=== PATIENT | male | born 1995 | race Hispanic/Latino ===

== ENCOUNTER 2019-05-08 07:43 | Inpatient (IN) | payer OTHER, SELFPAY ==
[2019-05-08 08:36] LABS: Absolute Lymphocytes (CBC) 1.3 K/uL (0.7-4.9); Basophils % 0.1 % (0-1.3); Hematocrit 43.4 % (39.6-49.0); Lymphocytes % 5.9 % (15.3-44.8); RBC Red Blood Cell Count 4.94 M/uL (4.33-5.43)
[2019-05-08] MEDS ORDERED: LEVALBUTEROL 1.25 MG/3 ML NEB ONE (08:42)
[2019-05-08] MEDS ORDERED: CEFTRIAXONE/SWI 1gm 2 GM/20 ML SYR ONE (08:42)
[2019-05-08] MEDS ORDERED: IPRATROPIUM BROM 0.5MG/2.5ML ONE (08:42)
[2019-05-08] MEDS ORDERED: ACETAMINOPHEN 325 MG TABLET ONE (08:42)
[2019-05-08] MEDS ORDERED: NA CHLORIDE 0.9% 1,000 ML ONE (08:43)
[2019-05-08] MEDS ORDERED: AZITHROMYCIN IV 500 MG in NA CHLORIDE 0.9% 250 ML IVPB ONE (09:00)
[2019-05-08] MEDS ORDERED: METHYLPREDNISOLONE 125 MG INJ ONE (09:03)
[2019-05-08 09:05] LABS: Blood Morphology Comment NOT SEEN (NOT SEEN); Platelet Estimate INCR
--- NOTE | 2019-05-08 09:34 | RAD REPORT ---
EXAM DESCRIPTION: Pedro Hayden And Osito (2 Views)05/08/2019 8:38 am CLINICAL HISTORY: Cough COMPARISON: Moderate diffuse bilateral interstitial lung opacities. FINDINGS: The lungs appear clear of acute infiltrate. The heart is normal size IMPRESSION: Moderate diffuse bilateral social lung opacities may represent interstitial pneumonia or miliary interstitial lung opacities associated with TB, fungal infection, metastatic disease or infl ammation
--- NOTE | 2019-05-08 09:39 | EDPHYS ---
Physician Documentation [facility] Name: Romelia Chang Age: 23 yrs Sex: Male : 1995 Arrival Date: 05/08/2019 Time: 07:46 Bed 13 Private MD: Unknown, Unknown ED Physician Efrain Lynn HPI: 05/08 08:13 This 23 yrs old Male presents to ER via Ambulatory with complaints of Fever, danielle Breathing Difficulty. 08:13 The patient reports fever, that was measured at 100 degrees Fahrenheit. Onset: The danielle symptoms/episode began/occurred 5 day(s) ago. Modifying factors: there are no obvious modifying factors. Associated signs and symptoms: Pertinent positives: chills, cough, runny nose, sinus congestion. Severity of symptoms: At their worst the symptoms were mild moderate in the emergency department the symptoms are unchanged. The patient has not experienced similar symptoms in the past. Historical: - Allergies: 07:59 No Known Allergies; iw - Home Meds: 07:59 None [Active]; iw - PMHx: 07:59 None; iw - PSHx: 07:59 None; iw - Immunization history:: Adult Immunizations not up to date. - Social history:: Smoking status: Patient uses vape pen. - Ebola Screening: : Patient negative for fever greater than or equal to 101.5 degrees Fahrenheit, and additional compatible Ebola Virus Disease symptoms Patient denies exposure to infectious person Patient denies travel to an Ebola-affected area in the 21 days before illness onset No symptoms or risks identified at this time. ROS: 08:14 Constitutional: Negative for fever, chills, and weight loss, Eyes: Negative for injury, danielle pain, redness, and discharge, ENT: Negative for injury, pain, and discharge, Neck: Negative for injury, pain, and swelling, Cardiovascular: Negative for chest pain, palpitations, and edema, Abdomen/GI: Negative for abdominal pain, nausea, vomiting, diarrhea, and constipation, Back: Negative for injury and pain, : Negative for injury, bleeding, discharge, and swelling, MS/Extremity: Negative for injury and deformity, Skin: Negative for injury, rash, and discoloration, Neuro: Negative for headache, weakness, numbness, tingling, and seizure, Psych: Negative for depression, anxiety, suicide ideation, homicidal ideation, and hallucinations, Allergy/Immunology: Negative for hives, rash, and allergies, Endocrine: Negative for neck swelling, polydipsia, polyuria, polyphagia, and marked weight changes, Hematologic/Lymphatic: Negative for swollen nodes, abnormal bleeding, and unusual bruising. 08:14 Respiratory: Positive for cough, shortness of breath, on exertion. Exam: 08:14 Constitutional: This is a well developed, well nourished patient who is awake, alert, danielle and in no acute distress. Head/Face: Normocephalic, atraumatic. Eyes: Pupils equal round and reactive to light, extra-ocular motions intact. Lids and lashes normal. Conjunctiva and sclera are non-icteric and not injected. Cornea within normal limits. Periorbital areas with no swelling, redness, or edema. ENT: Nares patent. No nasal discharge, no septal abnormalities noted. Tympanic membranes are normal and external auditory canals are clear. Oropharynx with no redness, swelling, or masses, exudates, or evidence of obstruction, uvula midline. Mucous membranes moist. Neck: Trachea midline, no thyromegaly or masses palpated, and no cervical lymphadenopathy. Supple, full range of motion without nuchal rigidity, or vertebral point tenderness. No Meningismus. Chest/axilla: Normal chest wall appearance and motion. Nontender with no deformity. No lesions are appreciated. Abdomen/GI: Soft, non-tender, with normal bowel sounds. No distension or tympany. No guarding or rebound. No evidence of tenderness throughout. Back: No spinal tenderness. No costovertebral tenderness. Full range of motion. Male : Normal genitalia with no discharge or lesions. Skin: Warm, dry with normal turgor. Normal color with no rashes, no lesions, and no evidence of cellulitis. MS/ Extremity: Pulses equal, no cyanosis. Neurovascular intact. Full, normal range of motion. Neuro: Awake and alert, GCS 15, oriented to person, place, time, and situation. Cranial nerves II-XII grossly intact. Motor strength 5/5 in all extremities. Sensory grossly intact. Cerebellar exam normal. Normal gait. Psych: Awake, alert, with orientation to person, place and time. Behavior, mood, and affect are within normal limits. 08:14 Cardiovascular: Rate: tachycardic, Rhythm: regular, Pulses: Pulses are 4+ in bilateral radial, brachial, femoral, popliteal, posterior tibial and and dorsalis pedis arteries.. Heart sounds: normal, Edema: is not appreciated, JVD: is noted bilaterally. 08:28 Musculoskeletal/extremity: DVT Exam: No signs of deep vein thrombosis. no pain, no danielle swelling, no tenderness, negative Homans' sign noted on exam, no appreciated bluish discoloration, no erythema, no increased warmth. Vital Signs: 07:59 BP 118 / 61; Pulse 105; Resp 18 S; Temp 99.2(O); Pulse Ox 91% on R/A; Weight 102.06 kg; iw Height 5 ft. 11 in. (180.34 cm); Pain 7/10; 08:20 Pulse 112; Resp 22; Pulse Ox 89% on R/A; iw 08:30 Pulse 113; Resp 20 S; Pulse Ox 78% on R/A; iw 08:38 BP 109 / 74; Pulse 110; Resp 20 S; Pulse Ox 90% on 5 lpm NC; iw 08:58 BP 113 / 78; Pulse 116; Resp 21 S; Pulse Ox 96% on Nebulizer Mask; iw 09:50 BP 116 / 58; Pulse 116; Resp 19 S; Pulse Ox 97% on R/A; iw 10:17 BP 120 / 69; Pulse 115; Resp 18 S; Pulse Ox 96% on R/A; iw 10:41 Pulse 110; Resp 20; Temp 98.8(O); Pulse Ox 91% on R/A; iw 11:35 Pulse 101; Resp 20 S; Pulse Ox 94% on R/A; iw 12:49 BP 120 / 75; Pulse 106; Resp 18; Pulse Ox 93% ; mh5 14:22 BP 123 / 71; Pulse 92; Resp 20; Temp 98.7; Pulse Ox 96% on R/A; ph 07:59 Body Mass Index 31.38 (102.06 kg, 180.34 cm) iw MDM: 08:00 Patient medically screened. [facility] 08:14 Data reviewed: vital signs, nurses notes, lab test result(s), radiologic studies. [facility] 05/08 08:13 Order name: CBC with Diff [facility] 05/08 08:13 Order name: Comprehensive Metabolic Panel; Complete Time: 10:37 [facility] 05/08 08:13 Order name: Blood Culture Adult (2) [facility] 05/08 08:17 Order name: D-Dimer [facility] 05/08 08:48 Order name: CBC with Automated Diff; Complete Time: 09:34 [facility] 05/08 09:09 Order name: Manual Differential; Complete Time: 09:34 [facility] 05/08 08:13 Order name: Chest Pa And Lat (2 Views) XRAY [facility] 05/08 09:34 Order name: D-Dimer [facility] 05/08 09:35 Order name: CT Chest For PE Angio [facility] 05/08 10:43 Order name: US Abdomen Limited [facility] 05/08 10:43 Order name: PO challenge: juice; Complete Time: 11:33 [facility] Administered Medications: 08:45 Drug: NS 0.9% 1000 ml Route: IV; Rate: 1 bolus; Site: right antecubital; iw 08:45 Drug: Albuterol - atroVENT (3:1) (2.5 mg - 0.5 mg) 3 ml Route: Nebulizer; iw 10:30 Follow up: Response: No adverse reaction; Wheezing diminished iw 08:56 Drug: Tylenol 650 mg Route: PO; iw 10:00 Follow up: Response: Temperature is decreased iw 08:57 Drug: Rocephin 2 grams Route: IV; Rate: per protocol; Site: right antecubital; iw 09:00 Follow up: IV Status: Completed infusion iw 09:04 Drug: SOLU-Medrol 125 mg Route: IVP; Site: right antecubital; iw 10:00 Follow up: Response: No adverse reaction iw 09:58 Drug: Zithromax 500 mg Route: IVPB; Infused Over: 1 hrs; Site: right antecubital; iw 11:34 Follow up: IV Status: Completed infusion iw 11:33 Drug: Potassium Effervescent Tablet 25 mEq Route: PO; iw 12:00 Follow up: Response: No adverse reaction iw Disposition: 05/08/19 08:52 Hospitalization ordered by Jace Mitchell for Inpatient Admission. Preliminary diagnosis are Hypoxemia, Pneumonia due to other specified bacteria - failed outpt treatment, Fever, unspecified, Dyspnea, Bandemia, Elevated white blood cell count. - Bed requested for Telemetry/MedSurg (Inpatient). - Status is Inpatient Admission. iw - Condition is Fair. - Problem is new. - Symptoms have improved. UTI on Admission? No Signatures: Dispatcher [employer] EDMS Efrain Lynn MD MD cha Williams, Irene, KASEY RN Nina Garcia ms Corrections: (The following items were deleted from the chart) 09: 08:52 Hospitalization Ordered by Jace Mitchell MD for Inpatient Admission. Preliminary [facility] diagnosis is Hypoxemia; Pneumonia due to other specified bacteria - failed outpt treatment; Fever, unspecified; Dyspnea. Bed requested for Telemetry/MedSurg (Inpatient). Status is Inpatient Admission. Condition is Fair. Problem is new. Symptoms have improved. UTI on Admission? No. danielle 12:17 09:09 05/08/2019 08:52 Hospitalization Ordered by Jace Mitchell MD for Inpatient iw Admission. Preliminary diagnosis is Hypoxemia; Pneumonia due to other specified bacteria - failed outpt treatment; Fever, unspecified; Dyspnea; Bandemia; Elevated white blood cell count. Bed requested for Telemetry/MedSurg (Inpatient). Status is Inpatient Admission. Condition is Fair. Problem is new. Symptoms have improved. UTI on Admission? No. [facility] 13:46 12:17 05/08/2019 08:52 Hospitalization Ordered by Jace Mitchell MD for Inpatient ms Admission. Preliminary diagnosis is Hypoxemia; Pneumonia due to other specified bacteria - failed outpt treatment; Fever, unspecified; Dyspnea; Bandemia; Elevated white blood cell count. Bed requested for [facility] ER HOLD. Status is Inpatient Admission. Condition is Fair. Problem is new. Symptoms have improved. UTI on Admission? No. iw 14:53 13:46 05/08/2019 08:52 Hospitalization Ordered by Jace Mitchell MD for Inpatient iw Admission. Preliminary diagnosis is Hypoxemia; Pneumonia due to other specified bacteria - failed outpt treatment; Fever, unspecified; Dyspnea; Bandemia; Elevated white blood cell count. Bed requested for Telemetry/MedSurg (Inpatient). Status is Inpatient Admission. Condition is Fair. Problem is new. Symptoms have improved. UTI on Admission? No. ms
--- NOTE | 2019-05-08 09:39 | ER ---
Nurse's Notes [facility] Prash[facility] Name: Romelia Chang Age: 23 yrs Sex: Male : 1995 Arrival Date: 05/08/2019 Time: 07:46 Bed 13 Private MD: Unknown, Unknown Diagnosis: Hypoxemia;Pneumonia due to other specified bacteria-failed outpt treatment;Fever, unspecified;Dyspnea;Bandemia;Elevated white blood cell count Presentation: 05/08 07:56 Presenting complaint: Patient states: dry cough, fever, difficulty breathing since Apr iw , was prescribed amoxicillin, prednisone, Cipro, Symbicort at clinic on 05-03-19, not getting better. Transition of care: patient was not received from another setting of care. Onset of symptoms was May 01, 2019. Risk Assessment: Do you want to hurt yourself or someone else? Patient reports no desire to harm self or others. Initial Sepsis Screen: Does the patient meet any 2 criteria? No. Patient's initial sepsis screen is negative. Does the patient have a suspected source of infection? No. Patient's initial sepsis screen is negative. Care prior to arrival: None. 07:56 Method Of Arrival: Ambulatory iw 07:56 Acuity: MARY 3 iw Triage Assessment: 08:00 Respiratory: Onset: The symptoms/episode began/occurred may 01, the patient has iw moderate shortness of breath. Historical: - Allergies: 07:59 No Known Allergies; iw - Home Meds: 07:59 None [Active]; iw - PMHx: 07:59 None; iw - PSHx: 07:59 None; iw - Immunization history:: Adult Immunizations not up to date. - Social history:: Smoking status: Patient uses vape pen. - Ebola Screening: : Patient negative for fever greater than or equal to 101.5 degrees Fahrenheit, and additional compatible Ebola Virus Disease symptoms Patient denies exposure to infectious person Patient denies travel to an Ebola-affected area in the 21 days before illness onset No symptoms or risks identified at this time. Screenin:00 Fall Risk IV access (20 points). iw 08:31 Abuse screen: Denies threats or abuse. Denies injuries from another. Nutritional iw screening: No deficits noted. Tuberculosis screening: No symptoms or risk factors identified. Assessment: 08:00 General: Appears in no apparent distress. Behavior is calm, cooperative. General: iw Reports fever for > 3 days, feeling ill for > 3 days. Pain: Complains of pain in chest Pain currently is 7 out of 10 on a pain scale. Aggravated by deep breath. Neuro: Level of Consciousness is awake, alert, obeys commands, Oriented to person, place, time, situation, Moves all extremities. Full function. Cardiovascular: Rhythm is sinus tachycardia. Respiratory: Reports shortness of breath at rest on exertion cough that is non-productive, pain with respiration Airway is patent Respiratory effort is even, labored, Respiratory pattern is regular, symmetrical, Breath sounds are coarse in left posterior upper lobe and left posterior lower lobe Breath sounds are diminished in right upper lobe and left upper lobe. GI: Abdomen is flat, non-distended. Derm: Skin is intact, is healthy with good turgor. Musculoskeletal: Range of motion: intact in all extremities. 08:30 Reassessment: pt dropped down to 78%, placed on 5L NC, up to 90%, pt to radiology for iw xray, remains on O2, transported via wheelchair. 08:38 Reassessment: Dr. Lynn notified that pt remains at 90% on 5 L NC, orders placed for iw breathing treatment. 09:05 Reassessment: pt states breathing has improved while on neb treatment, SpO2=98%, iw respirations even, unlabored, pt updated on POC, family at bedside. 09:51 Reassessment: Patient appears in no apparent distress at this time. Patient and/or iw family updated on plan of care and expected duration. Pain level reassessed. Patient is alert, oriented x 3, equal unlabored respirations, skin warm/dry/pink. Patient states feeling better. Patient states symptoms have improved. 11:35 Reassessment: Patient appears in no apparent distress at this time. Patient and/or iw family updated on plan of care and expected duration. Pain level reassessed. Patient is alert, oriented x 3, equal unlabored respirations, skin warm/dry/pink. 14:33 Reassessment: Patient appears in no apparent distress at this time. Patient and/or ph family updated on plan of care and expected duration. Pain level reassessed. Patient is alert, oriented x 3, equal unlabored respirations, skin warm/dry/pink. Report called to Live Linder RN. Vital Signs: 07:59 BP 118 / 61; Pulse 105; Resp 18 S; Temp 99.2(O); Pulse Ox 91% on R/A; Weight 102.06 kg; iw Height 5 ft. 11 in. (180.34 cm); Pain 7/10; 08:20 Pulse 112; Resp 22; Pulse Ox 89% on R/A; iw 08:30 Pulse 113; Resp 20 S; Pulse Ox 78% on R/A; iw 08:38 BP 109 / 74; Pulse 110; Resp 20 S; Pulse Ox 90% on 5 lpm NC; iw 08:58 BP 113 / 78; Pulse 116; Resp 21 S; Pulse Ox 96% on Nebulizer Mask; iw 09:50 BP 116 / 58; Pulse 116; Resp 19 S; Pulse Ox 97% on R/A; iw 10:17 BP 120 / 69; Pulse 115; Resp 18 S; Pulse Ox 96% on R/A; iw 10:41 Pulse 110; Resp 20; Temp 98.8(O); Pulse Ox 91% on R/A; iw 11:35 Pulse 101; Resp 20 S; Pulse Ox 94% on R/A; iw 12:49 BP 120 / 75; Pulse 106; Resp 18; Pulse Ox 93% ; mh5 14:22 BP 123 / 71; Pulse 92; Resp 20; Temp 98.7; Pulse Ox 96% on R/A; ph 07:59 Body Mass Index 31.38 (102.06 kg, 180.34 cm) iw ED Course: 07:46 Patient arrived in ED. ag5 07:47 Unknown, Unknown is Private Physician. ag5 07:49 Marylou Gonzalez, RN is Primary Nurse. iw 07:58 Triage completed. iw 07:59 Arm band placed on. iw 08:00 Efrain Lynn MD is Attending Physician. danielle 08:25 Inserted saline lock: 20 gauge in right antecubital area, using aseptic technique. iw Blood collected. 08:50 Jace Mitchell MD is Hospitalizing Provider. danielle 09:00 D-Dimer Sent. iw 09:23 Chest Pa And Lat (2 Views) XRAY In Process Unspecified. EDMS 09:44 Radiology exam delayed due to lab results not completed at this time. (BUN/Creatinine). bq 11:05 CT Chest For PE Angio In Process Unspecified. EDMS 12:48 Diet: Patient given a regular meal tray. mh5 12:48 Patient has correct armband on for positive identification. Bed in low position. Call mh5 light in reach. Side rails up X 1. Adult w/ patient. Pillow given. Pulse ox on. NIBP on. 14:33 No provider procedures requiring assistance completed. Patient admitted, IV remains in ph place. Administered Medications: 08:45 Drug: NS 0.9% 1000 ml Route: IV; Rate: 1 bolus; Site: right antecubital; iw 08:45 Drug: Albuterol - atroVENT (3:1) (2.5 mg - 0.5 mg) 3 ml Route: Nebulizer; iw 10:30 Follow up: Response: No adverse reaction; Wheezing diminished iw 08:56 Drug: Tylenol 650 mg Route: PO; iw 10:00 Follow up: Response: Temperature is decreased iw 08:57 Drug: Rocephin 2 grams Route: IV; Rate: per protocol; Site: right antecubital; iw 09:00 Follow up: IV Status: Completed infusion iw 09:04 Drug: SOLU-Medrol 125 mg Route: IVP; Site: right antecubital; iw 10:00 Follow up: Response: No adverse reaction iw 09:58 Drug: Zithromax 500 mg Route: IVPB; Infused Over: 1 hrs; Site: right antecubital; iw 11:34 Follow up: IV Status: Completed infusion iw 11:33 Drug: Potassium Effervescent Tablet 25 mEq Route: PO; iw 12:00 Follow up: Response: No adverse reaction iw Outcome: 08:52 Decision to Hospitalize by Provider. danielle 14:33 Admitted to Med/surg accompanied by tech, via wheelchair, room 408, with chart, Report ph called to Live Linder RN 14:33 Condition: stable 14:33 Instructed on the need for admit. 14:53 Patient left the ED. iw Signatures: Dispatcher [employer] Efrain eCron MD MD cha Quilty, Betty bq Williams, Irene, RN RN iw Hall, Patricia, RN RN ph Martinez, Maria 5 Shey Pisano5 Corrections: (The following items were deleted from the chart) 08:01 07:59 BP 118 / 61; Pulse 105bpm; Resp 18bpm; Spontaneous; Pulse Ox 93% RA; Temp 99.2F iw Oral; 102.06 kg; Height 5 ft. 11 in.; BMI: 31.3; Pain 7/10; iw 10:51 10:41 Pulse 110bpm; Resp 20bpm; Pulse Ox 91% RA; iw iw
[2019-05-08 10:17] LABS: ALT/SGPT 241 U/L (12-78); AST/SGOT 138 U/L (15-37); Albumin 2.5 g/dL (3.4-5.0); Alkaline Phosphatase 282 U/L (45-117); BUN Blood Urea Nitrogen 8 mg/dL (7-18); Bicarbonate 24 mmol/L (21-32); Bilirubin Total 2.5 mg/dL (0.2-1.0); Glucose Level 113 mg/dL (74-106); Potassium 3.3 mmol/L (3.5-5.1); Protein, Total 7.8 g/dL (6.4-8.2); Sodium Level 139 mmol/L (136-145)
--- NOTE | 2019-05-08 10:39 | RAD REPORT ---
EXAM DESCRIPTION: CT - Chest For Pe Angio - 05/08/2019 10:28 am CLINICAL HISTORY: Chest pain. CHEST PAIN COMPARISON: Chest Pa And Lat (2 Views) dated 05/08/2019 TECHNIQUE: CT angiogram of the pulmonary arteries was performed with MIP. All CT scans are performed using dose optimization technique as appropriate and may include automated exposure control or mA/KV adjustment according to patient size. FINDINGS: No evidence of pulmonary thromboembolism. No acute aortic finding demonstrated. Extensive bilateral interstitial lung opacities seen with subpleural sparing. No significant pericardial or pleural fluid. No concerning bony finding. IMPRESSION: No evidence of pulmonary thromboembolism. Extensive interstitial lung opacity present bilaterally with evidence of subpleural sparing. This pat tern can indicate nonspecific interstitial pneumonia (NSIP).
--- NOTE | 2019-05-08 11:23 | RAD REPORT ---
EXAM DESCRIPTION: US - Abdomen Exam Limited - 05/08/2019 11:13 am CLINICAL HISTORY: ABD PAIN COMPARISON: No comparisons FINDINGS: The gallbladder demonstrates no gallstones. No pericholecystic fluid or gallbladder wall t hickening. The common bile duct is normal measuring 4 mm. The liver demonstrates no findings of intrahepatic biliary dilatation. IMPRESSION: Unremarkable examination.
[2019-05-08] MEDS ORDERED: POTASSIUM 25 MEQ EFFERV TAB ONE (11:28)
[2019-05-08] MEDS ORDERED: ONDANSETRON 4 MG/2 ML VIAL IV PRN (12:01)
[2019-05-08 15:23] VITALS: BMI 30.7
--- NOTE | 2019-05-08 18:28 | P.HP ---
Certification for Inpatient Patient admitted to: Inpatient With expected LOS: >2 Midnights Practitioner: I am a practitioner with admitting privileges, knowledge of patient current condition, hospital course, and medical plan of care. Services: Services provided to patient in accordance with Admission requirements found in Title 42 Section 412.3 of the Code of Federal Regulations Patient History Date of Service: 05/08/19 Reason for admission: Shortness of breath History of Present Illness: This is a 23-year-old male with no oral past medical history admitted for shortness of breath and fever. Per patient, for the past 8-9 days, he has been having fevers, dry cough and shortness of breath. He reports a maximum temperature of 104 at home. He also reports using Vape cartridges with THC. He states that he went to a clinic and needle few days ago, picked up ciprofloxacin and amoxicillin. She took it as he was prescribed for 5 days without any improvement. He therefore came to the emergency room today. In the ER, he was hemodynamically stable, had a fever. His chest x-ray was with bilateral lung opacities, his CT of the chest is negative for PE but also showed bilateral interstitial pneumonia. His labs were remarkable for WBC count elevated at 22.3, platelets 589, LFTs were also elevated. An abdominal ultrasound was done, which was normal. At the time of my exam, patient is alert oriented x3, in no acute distress and hemodynamically stable. He reported that his symptoms had improved drastically. Allergies No Known Allergies Allergy (Unverified 05/08/19 08:52) Home medications list reviewed: Yes Home Medications: Amoxicillin 500 mg PO TID 05/08/19 Budesonide/Formoterol Fumarate [Symbicort 160-4.5 Mcg Inhaler] 1 puff IH DAILY 05/08/19 Ciprofloxacin HCl [Cipro 500 MG Tablet] 500 mg PO BID 05/08/19 predniSONE [Deltasone] 20 mg PO DAILY 05/08/19 - Past Medical/Surgical History Diabetic: No - Social History Smoking Status: Current every day smoker Alcohol use: Yes CD- Drugs: No Caffeine use: Yes Place of Residence: Home Review of Systems 10-point ROS is otherwise unremarkable Physical Examination - Vital Signs Temperature: 97 F Blood Pressure: 145/79 Pulse: 92 Respirations: 16 Pulse Ox (%): 94 - Physical Exam General: Alert, In no apparent distress, Oriented x3 HEENT: Atraumatic, PERRLA, Mucous membr. moist/pink, EOMI, Sclerae nonicteric Neck: Supple, 2+ carotid pulse no bruit, No LAD, Without JVD or thyroid abnormality Respiratory: Normal air movement, Crackles/rales Cardiovascular: Regular rate/rhythm, Normal S1 S2 Gastrointestinal: Normal bowel sounds, No tenderness Musculoskeletal: No tenderness Integumentary: No rashes Neurological: Normal gait, Normal speech, Normal strength at 5/5 x4 extr, Normal tone, Normal affect Lymphatics: No axilla or inguinal lymphadenopathy - Studies Laboratory Data (last 24 hrs) 05/08/19 09:40: Sodium 139, Potassium 3.3 L, BUN 8, Creatinine 0.61, Glucose 113 H, Total Bilirubin 2.5 H, AST 138 H, ALT 241 H, Alkaline Phosphatase 282 H 05/08/19 08:20: WBC 22.3 H*, Hgb 15.4, Hct 43.4, Plt Count 589 H Assessment and Plan - Problems (Diagnosis) (1) Bilateral pneumonia Current Visit: Yes Status: Acute Qualifiers: Pneumonia type: due to unspecified organism Lung location: unspecified part of lung Qualified Code(s): J18.9 - Pneumonia, unspecified organism (2) Acute lung injury Current Visit: Yes Status: Acute Qualifiers: Encounter type: initial encounter Qualified Code(s): S27.309A - Unspecified injury of lung, unspecified, initial encounter (3) Leukocytosis Current Visit: Yes Status: Acute (4) Elevated LFTs Current Visit: Yes Status: Acute (5) Obesity (BMI 30.0-34.9) Current Visit: No Status: Chronic (6) Tetrahydrocannabinol (THC) use disorder, mild, abuse Current Visit: Yes Status: Acute - Plan -Admit to floor with tele -chest x-ray consistent with bilateral pneumonia -chest CT negative for pulmonary embolism, consistent with bilateral interstitial pneumonia -abdominal ultrasound negative -trend LFTs -symptoms likely secondary to Vape/THC usage. -continue IV antibiotics -IV steroids -oxygen support as needed. May use BiPAP if needed. DVT prophylaxis: Lovenox GI prophylaxis: None Diet: regular Disposition: pending symptomatic improvement Discharge Plan: Home Plan to discharge in: Greater than 2 days - Advance Directives Does patient have a Living Will: No Does patient have a Durable POA for Healthcare: No Time Spent Managing Pts Care (In Minutes): 55
[2019-05-08] MEDS: ALBUTEROL 2.5 MG/3 ML NEB SOL NEB SCH (20:55)
[2019-05-08] MEDS: IPRATROPIUM BROM 0.5MG/2.5ML NEB SCH (20:55)
[2019-05-08] MEDS: CEFTRIAXONE/SWI 1gm 1 GM/10 ML SYR IV SCH (21:07)
[2019-05-08] MEDS: METHYLPREDNISOLONE 40 MG INJ IV SCH (23:54)
[2019-05-09] MEDS: IPRATROPIUM BROM 0.5MG/2.5ML NEB SCH ×4 (01:30→20:40)
[2019-05-09] MEDS: ALBUTEROL 2.5 MG/3 ML NEB SOL NEB SCH ×4 (01:30→20:40)
[2019-05-09] MEDS: METHYLPREDNISOLONE 40 MG INJ IV SCH ×4 (06:09→23:29)
[2019-05-09 06:33] LABS: Absolute Lymphocytes (CBC) 0.7 K/uL (0.7-4.9); Hematocrit 39.3 % (39.6-49.0); Lymphocytes % 3.8 % (15.3-44.8); MPV 7.2 fL (7.6-11.3); RBC Red Blood Cell Count 4.38 M/uL (4.33-5.43)
[2019-05-09 07:09] LABS: ALT/SGPT 196 U/L (12-78); AST/SGOT 62 U/L (15-37); Albumin 2.6 g/dL (3.4-5.0); Alkaline Phosphatase 283 U/L (45-117); BUN Blood Urea Nitrogen 12 mg/dL (7-18); Bicarbonate 28 mmol/L (21-32); Bilirubin Total 0.7 mg/dL (0.2-1.0); Glucose Level 139 mg/dL (74-106); Potassium 4.2 mmol/L (3.5-5.1); Protein, Total 7.9 g/dL (6.4-8.2); Sodium Level 140 mmol/L (136-145)
[2019-05-09] MEDS: ENOXAPARIN 40 MG/0.4 ML SQ SCH (08:17)
[2019-05-09] MEDS: CEFTRIAXONE/SWI 1gm 1 GM/10 ML SYR IV SCH ×2 (08:17→20:27)
[2019-05-09] MEDS: AZITHROMYCIN IV 500 MG in NA CHLORIDE 0.9% 250 ML IVPB SCH (09:15)
--- NOTE | 2019-05-09 12:14 | RAD REPORT ---
EXAM DESCRIPTION: Pedro Single View05/09/2019 12:03 pm CLINICAL HISTORY: Shortness of breath COMPARISON: May 08, 2019 FINDINGS: No significant change in the diffuse bilateral pulmonary opacities . The heart is normal size IMPRESSION: No change in the diffuse bilateral pulmonary opacities which may represent pneumonia or pneumonitis
--- NOTE | 2019-05-09 20:11 | PN ---
Date of Progress Note: 05/09/2019 Subjective: Patient is seen and examined. Chart reviewed and case discussed with RN and Dr. Shandra pruitt. The patient is improving. No significant shortness of breath. Still having some cough. Remains afebrile. Medications list reviewed. Physical Examination: Vital Signs: Temperature 97.6, heart rate 73, blood pressure 124/65, respirations 17, O2 90% on room air. General: Awake, alert, oriented x3, in some minimal respiratory distress. CV: S1, S2. No murmurs. Regular rate and rhythm. Peripheral pulses present. Respiratory: Diminished breath sounds. No wheezes or stridor. No use of accessory muscles. Gastrointestinal: Abdomen is soft, nontender, nondistended. Positive bowel sounds. No guarding or rigidity. Extremities: No clubbing, cyanosis, or edema. No calf tenderness. Neuro: Cranial nerves 2 through 12 intact grossly. No focal neurological deficit. Speech is normal . Laboratory Data: WBC 18, H and H 13.9 and 39.3, platelets 549, neutrophils 94%. Sodium 140, potassi um 4.2, chloride 104, CO2 of 28, BUN 12, creatinine 0.55, glucose 139, calcium 9.6. AST 62, ALT 196, alkaline phosphatase 283, albumin 2.6. Procalcitonin 0.17. Blood cultures, no growth to date. Inf luenza screen negative. Chest x-ray, personally reviewed, shows no changes, with diffuse bilateral pulmonary opacities, which may represent pneumonia or pneumonitis. Assessment And Plan: 1.Bilateral pneumonia, failed outpatient treatment. We will continue with IV antibiotics. The shasta ent is still having some cough and remains somewhat hypoxic at 90% on room air. We will need to ambu late to ensure the patient does not get dyspneic upon exertion. 2.Acute lung injury, initial encounter, likely due to vaping. 3.Leukocytosis related to pneumonia and acute lung injury. We will continue to monitor, trending do wn. 4.Elevated liver enzymes. Abdominal ultrasound did not show any acute changes. We will obtain hepa titis panel. 5.Obesity. BMI 30. 6.Marijuana abuse. Counseled the patient, recommended to stop vaping completely and to avoid mariju gino in the future. 7.Deep vein thrombosis prophylaxis with Lovenox. Continue IV steroids. 8.Disposition. Likely discharge in the next 24 to 48 hours depending on clinical improvement. Cons ult Pulmonology. SA/MODL Voice ID: [id number] Report ID: [id number]
[2019-05-10] MEDS: ALBUTEROL 2.5 MG/3 ML NEB SOL NEB SCH ×2 (02:10→08:48)
[2019-05-10] MEDS: IPRATROPIUM BROM 0.5MG/2.5ML NEB SCH ×2 (02:10→08:48)
[2019-05-10 04:42] LABS: Absolute Lymphocytes (CBC) 0.5 K/uL (0.7-4.9); Basophils % 0.2 % (0-1.3); Hematocrit 40.5 % (39.6-49.0); Lymphocytes % 2.4 % (15.3-44.8); MPV 7.4 fL (7.6-11.3); RBC Red Blood Cell Count 4.48 M/uL (4.33-5.43)
[2019-05-10 04:54] LABS: ALT/SGPT 197 U/L (12-78); AST/SGOT 55 U/L (15-37); Albumin 2.7 g/dL (3.4-5.0); Alkaline Phosphatase 239 U/L (45-117); BUN Blood Urea Nitrogen 13 mg/dL (7-18); Bicarbonate 25 mmol/L (21-32); Bilirubin Total 0.6 mg/dL (0.2-1.0); Glucose Level 171 mg/dL (74-106); Potassium 4.1 mmol/L (3.5-5.1); Protein, Total 8.5 g/dL (6.4-8.2); Sodium Level 140 mmol/L (136-145)
[2019-05-10 05:24] LABS: Blood Morphology Comment NOT SEEN (NOT SEEN); Platelet Estimate INCR
[2019-05-10] MEDS: METHYLPREDNISOLONE 40 MG INJ IV SCH ×2 (05:41→12:00)
[2019-05-10] MEDS: CEFTRIAXONE/SWI 1gm 1 GM/10 ML SYR IV SCH (09:07)
[2019-05-10] MEDS: ENOXAPARIN 40 MG/0.4 ML SQ SCH (09:07)
[2019-05-10] MEDS: AZITHROMYCIN IV 500 MG in NA CHLORIDE 0.9% 250 ML IVPB SCH (10:44)
[2019-05-10 12:30] VITALS: BP 120/68; TEMP 97.6
[2019-05-10 12:44] VITALS: O2SAT 96
--- NOTE | 2019-05-10 12:50 | P.CNS ---
Date of Consult: 05/10/19 Chief Complaint: Acute lung injury History of Present Illness: Patient is 23 years of age admitted to the hospital complaining of cough congestion shortness of breath for the past 2 weeks in addition she has some chest discomfort. Patient has been vaping recently with THC. No other medical problems he feels well chest x-ray and CT scan showed bilateral ground-glass changes on admission he is doing much better Allergies No Known Allergies Allergy (Unverified 05/08/19 08:52) Home Medications: Budesonide/Formoterol Fumarate [Symbicort 160-4.5 Mcg Inhaler] 1 puff IH DAILY 05/08/19 Azithromycin Tab [Zithromax*] 250 mg PO DAILY #4 tab 05/10/19 predniSONE [Deltasone] 10 mg PO BID #20 tab 05/10/19 - Past Medical/Surgical History Diabetic: No - Social History Alcohol use: Yes CD- Drugs: No Caffeine use: Yes Place of Residence: Home Review of Systems 10-point ROS is otherwise unremarkable Physical Examination Temp Pulse Resp BP Pulse Ox 97.6 F 87 17 120/68 96 05/10/19 12:00 05/10/19 12:00 05/10/19 12:00 05/10/19 12:00 05/10/19 12:00 General: Alert, Oriented x3 Neck: Supple Respiratory: Clear to auscultation bilaterally Cardiovascular: No edema, Regular rate/rhythm - Problems (1) Acute lung injury Status: Acute Plan: Patient is 23 years of age admitted with acute lung injury bilateral diffuse ground-glass changes on CT scan I suspect that he has VAP induced lung injury patient's white count is elevated cultures are all negative patient's oxygenation is satisfactory he can be discharged home on prednisone 10 mg twice a day for 10 days and Zithromax for 7 days follow up with me next week patient' s ultrasound is negative of the liver normal liver function tests but possible that he had a viral illness l or an atypical pneumonia Qualifiers: Encounter type: initial encounter Qualified Code(s): S27.309A - Unspecified injury of lung, unspecified, initial encounter
--- NOTE | 2019-05-11 03:40 | DS ---
Date of Discharge: 05/10/2019 Consultants: Dr. Mast with Pulmonology. Admitting Diagnoses: 1.Bilateral pneumonia, failed outpatient treatment. 2.Acute lung injury, initial encounter. 3.Leukocytosis. 4.Elevated LFTs. 5.Obesity, body mass index of 30. 6.TSH use disorder, mild. Discharge Diagnoses: 1.Bilateral pneumonia, failed outpatient treatment, improving. 2.Acute lung injury, initial encounter secondary to vaping. 3.Leukocytosis related to pneumonia and lung injury, improved, also related to steroids. 4.Elevated liver enzymes, unclear etiology. Hepatitis panel pending. 5.Obesity, body mass index of 30. 6.Marijuana abuse, counseled. Hospital Course: Patient is a 23-year-old male with no significant past medical history, comes in wi th shortness of breath and fever. He was on p.o. antibiotics, however, did not improve. He is on Ci pro and amoxicillin, took it for 5 days without improvement, came in with worsening symptoms. He als o reports vaping with marijuana. He was having high temperatures of 104. Patient was thought to hav e acute lung injury related to vaping. He was started on IV steroids and IV antibiotics. His procal citonin was at a level that did not indicate sepsis. His potassium was low, which was corrected. He did have elevated liver enzymes with unclear etiology. Ultrasound of the abdomen did not reveal any acute issues. Hepatitis panel was obtained, is currently pending as it is a send out lab. Patient will need to follow up with hepatitis panel results. His D-dimer was elevated, therefore CT angio ch est was done, which was negative for pulmonary embolism, did show extensive interstitial lung opacity bilaterally with evidence of subpleural sparing indicating nonspecific interstitial pneumonia. Pulm onology was consulted. Patient responded well to treatment. He was hypoxic requiring oxygen. He wa s then afebrile. He was able to be weaned off supplemental O2. His white blood cell count initially came down, however, likely increased back up again due to steroids. His cultures did not show any g rowth, influenza screen was also negative. Repeat chest x-ray showed no change clinically, however, patient was significantly better. He was counseled regarding vaping and marijuana use. He stated th at he does not plan to use it in the future. He understands the risks associated with it. Patient w as able to ambulate without difficulty. He was then cleared for discharge from pulmonology [facility]. He will finish a course of azithromycin and prednisone. Medications: Reviewed as per medication reconciliation list. Followup: Follow up with primary care physician in 2-3 days. Follow up with technology coach, Dr. Deysi carrion in 1-2 weeks. Return to ER for worsening condition. Diet: Calorie restricted diet. Activity: As tolerated. Physical Examination: General: Awake, alert, oriented x3. No acute distress. CV: S1-S2. No murmurs. Respiratory: Moving air well bilaterally. No wheezing. Gastrointestinal: Abdomen is soft, nontender, nondistended. Positive bowel sounds. Extremities: No clubbing, cyanosis, or edema. Neurologic: Nonfocal. Time Spent: Total time spent discharging patient was 36 minutes. LOLA Voice ID: [id number] Report ID: [id number]
[2019-05-12 21:21] LABS: HBsAG Nonreactive (Nonreactive)
== END 2019-05-10 12:26 | disposition home or self-care (01) | DRG 197 ==
LOC: ER 07:43 → ERHOLD 11:08 → 4TH 14:36
PROVIDERS: ADMIT Family Medicine; ATTEND Family Medicine
DX: J84.9 Interstitial pulmonary disease, unspecified (principal); S27.302 Unspecified injury of lung, bilateral; F12.10 Cannabis abuse, uncomplicated; D72.829 Elevated white blood cell count, unspecified; R79.89 Other specified abnormal findings of blood chemistry; E66.9 Obesity, unspecified; X58.XXXA Exposure to other specified factors, initial encounter; Y92.9 Unspecified place or not applicable; Z68.30 Body mass index [BMI] 30.0-30.9, adult
CPT/HCPCS: 36415; 71045; 71046; 71275; 76705; 80053; 80074; 84145; 85025; 85379; 87040; 87804; 94640; 94760; 96365; 96366; 96375; 99285; J0456; J0696; J1650; J2920; J2930; J7030; Q9967